=== PATIENT | female | born 1985 | race Caucasian/White ===

== ENCOUNTER 2016-11-29 20:08 | Emergency (ER) | payer OTHER ==
[~2016-11-29] VITALS: Ht 165.1 cm; Wt 59.1 kg
[~2016-11-29 20:08] MED LIST: HYDR1TAB PO; IBUP-1152 PO; PREN1TAB47 PO
[2016-11-29 20:36] VITALS: BP 120/84; PULSE 87; RESP 16; O2SAT 99
--- NOTE | 2016-11-29 21:52 | DRSVH ---
PROCEDURE: X-RAY CHEST, TWO VIEWS ([id number]) INDICATIONS: cough TECHNIQUE: 2 views of the chest were acquired. COMPARISON: None. FINDINGS: Surgical changes and devices: Right upper quadrant surgical clips. Lungs and pleura: No pleural effusions or pneumothorax. Lungs are clear. Mediastinum: Mediastinal contours are normal. Heart size is normal. Bones and chest wall: No suspicious bony abnormalities. Soft tissues appear unremarkable. IMPRESSION: No radiographic evidence of acute cardiopulmonary pathology. Dictated by: Blake Flaherty M.D. on 11/29/2016 at 21:49 Approved by: Blake Flaherty M.D. on 11/29/2016 at 21:50
[2016-11-29] MEDS ORDERED: Albuterol HFA 60 Puff 8 Gm Inhaler INHALATION PRN (21:55)
[2016-11-29] MEDS ORDERED: BENZ-12 PO (21:55)
[2016-11-29] MEDS ORDERED: Albuterol HFA 200 Puff Inhaler (Vent Pts Only) INHALATION PRN (22:00)
--- NOTE | 2016-11-29 22:08 | ED.REPORT ---
HPI-General Illness Date of Service Nov 29, 2016 ED Provider: Nick Medina MD Pt is a 31 year old female presenting to the ED complaining of a productive cough onset a couple weeks ago, worsened in the last week. Denies fever, chills , nausea, vomiting, abdominal pain or chest pain. She reports a bit of orange and yellow sputum. Pt denies hx of similar cough or hx of asthma. Pt is a smoker and continues to smoke 0.5-1 packs per day. Her son had a head cold before the pt developed symptoms. Patient reports that she had similar URI symptoms prior to developing this persistent cough. She has not taken anything for this cough. Nursing Notes Stated Complaint: COUGH, CHEST TIGHTNESS Chief Complaint: FLU/Cold Symptoms Nursing Notes Reviewed: Yes Allergies: Coded Allergies: No Known Allergies (Verified , 11/29/16) Scheduled Hydrocod/APAP-Expunged, Do Not Renew! (VICODIN 5/500-Expunged Drug, Do Not Renew ) 1 Udtab Tablet 1 UDTAB PO PRN IBUPROFEN-Expunged Drug, Do Not Renew! (IBUPROFEN-Expunged Drug, Do Not Renew!) 800 Mg Tablet 800 MG PO PRN Vit/Fe Fumarate/Fa-Expunged Drug, Do (-Expunged Drug, Do Not Renew!) 1 Tab Tablet 1 TAB PO DAILY Scheduled PRN Benzonatate (Tessalon Perle) 100 Mg Capsule 100 MG PO TID PRN PRN For Cough General Time Seen by MD: 20:43 Chief Complaint Cough Hx Obtained From: Patient Arrived By: Walk-in Sudden in Onset?: No Onset Occurred: More than a week ago... (2 weeks) Symptom Duration: Since onset Severity: Current: No pain currently Severity: Maximum: No pain Recent Healthcare: No recent doctor visit, No recent hospitalization Similar Sx Previous: No Past Medical History Past Medical History H/o substance use (meth) Past Surgical History None reported Smoking History Never Smoker Social History Drug Use: In recovery, Meth Other Social History: Good social support Ambulatory Status Independent Review of Systems Full Review of Systems Constitutional: Denies: Chills, Fever Respiratory: Reports: Prod cough, yellow Cardiovascular: Denies: Chest pain GI: Denies: Abdominal pain, Nausea, Vomiting Complete sys rev & neg: except as marked. Physical Exam Vital Signs Vital Signs Date Time Temp Pulse Resp B/P Pulse Ox O2 Delivery O2 Flow Rate FiO2 11/29/16 22:27 36.8 84 18 122/74 99 Room Air 11/29/16 20:36 36.7 87 16 120/84 99 Room Air Initial VS: Reviewed General/Constitutional: Well-developed, Well-nourished Head / Eyes: Atraumatic, Normocephalic, PERRL ENT: Mucous membranes moist, Conjunctiva normal, No scleral icterus Neck: Supple, Non-tender, Full range of motion Cardiovascular: Regular rate & rhythm, Heart sounds normal, Intact distal pulses Abdomen / GI: Soft, Non-tender, No guarding, No rebound, No distention Extremities: Vascular intact, Neuro intact, No swelling, No tenderness Skin: Warm, Dry, No cyanosis Neurologic: Alert, Oriented, Nonfocal Psychiatric: Mood/affect normal, Behavior normal, Normal thought content Respiratory / Chest: Atraumatic, No rales Coarse breath sounds. Good air movement. Mild expiratory movement. Interpretation & Diagnostics X-Ray Chest Interpretation Chest Xray Interpretation: IMPRESSION: No radiographic evidence of acute cardiopulmonary pathology. Dictated by: Blake Flaherty M.D. on 11/29/2016 at 21:49 View: AP & lat Interpretation / Wet Read by: Interpret - Radiologist Re-Eval/Medical Decision Med Decision/Clinical Course Pt is a 31 year old female presenting to the ED complaining of a productive cough onset a couple weeks ago, worsened in the last week. Denies fever, chills , nausea, vomiting, abdominal pain or chest pain. She reports a bit of orange and yellow sputum. Pt denies hx of similar cough or hx of asthma. Pt is a smoker and continues to smoke 0.5-1 packs per day. Her son had a head cold before the pt developed symptoms. Patient reports that she had similar URI symptoms prior to developing this persistent cough. She has not taken anything for this cough. Here in the emergency department the patient was clinically stable, afebrile and in no apparent distress. She was noted to have persistent/dry sounding cough productive of mild amounts of yellowish sputum. She had mild expiratory wheezing and coarse breath sounds. Here in the emergency department the patient was treated with Tessalon and responded well to an albuterol inhaler. Chest x ray shows no radiographic evidence of acute cardiopulmonary pathology. Overall presentation consistent with bronchitis in the setting of chronic smoking and recent upper respiratory infection. Patient is advised to stop smoking. She is advised to use the albuterol inhaler as needed and take Tessalon for cough. She has an appointment with her primary care physician later this week. If her symptoms do not improve in the meantime I advised her to consider asking for steroids and possibly azithromycin. At this time there is no evidence of focal pneumonia or other more concerning cardiopulmonary process. Patient feels comfortable with discharge and would like to go home. Prior to discharge follow-up and return precautions were reviewed in detail with the patient who verbalized understanding and agreement with the plan. The patient was discharged in stable condition. Time of Eval: 22:16 Patient Status: Condition improved Re-Evaluation/Progress Note: Discussed plan for discharge. Pt understands and agrees with plan. Counseled Regarding: Diagnosis, Lab results, Need for follow-up, When/why to return to ED Discharge & Departure Primary Impression: Bronchitis Additional Impressions: Cough Wheezing Tobacco abuse Polysubstance abuse Disposition: Home Discharge Condition All VS Reviewed: Yes Condition: Improved Patient Instructions: Acute Bronchitis (ED) Additional Instructions: Keep your appointment with your primary care doctor on Sunday. Take the Tessalon pearls and Albuterol as directed. Do not smoke, this will only exacerbate your symptoms. Return to the ER for any nausea, vomiting, fever, worsening cough, difficulty breathing, lightheadedness, or any other symptoms at this time. If your symptoms don't improve with your inhaler and the Tessalon, discuss the possibility of oral steroids and antibiotics with your primary care doctor. Referrals: Ritu Wood ARNP (PCP) Berta Attestation Portions of this note were transcribed by Shelby Mack. I, Dr. Medina personally performed the history, physical exam and medical decision-making; I reviewed and confirmed the accuracy of the information in the transcribed note. Signed by: Berta Hazel, 11/29/2016. copies to: Ritu Wood ARNP [place], Beck O MD Nov 29, 2016 22:08 SHELBY MACK Nov 29, 2016 22:17
[2016-11-29 22:27] VITALS: BP 122/74; PULSE 84; RESP 18; O2SAT 99
== END 2016-11-29 22:21 | disposition home or self-care (01) ==
LOC: SED 20:08
DX: J40 Bronchitis, not specified as acute or chronic (principal); R06.2 Wheezing; F17.200 Nicotine dependence, unspecified, uncomplicated; F19.10 Other psychoactive substance abuse, uncomplicated